=== PATIENT | female | born 1995 | race Caucasian/White ===

== ENCOUNTER 2017-12-09 13:23 | Emergency (ER) | payer MEDICAID ==
[~2017-12-09] VITALS: Ht 175.3 cm; Wt 85.0 kg
[2017-12-09 13:28] VITALS: Ht 175.3 cm; Wt 85.0 kg
[2017-12-09] MEDS ORDERED: TRI-SPRINTEC1 TAB PO (13:31)
[2017-12-09] MEDS ORDERED: TORADOL10 MG PO (16:30)
[2017-12-09 17:31] VITALS: BP 137/78
== END 2017-12-09 17:24 | disposition home or self-care (01) ==
LOC: D.ER 13:23
DX: S69.91XA Unspecified injury of right wrist, hand and finger(s), initial encounter (principal); Y93.83 Activity, rough housing and horseplay; Y92.019 Unspecified place in single-family (private) house as the place of occurrence of the external cause